=== PATIENT | female | born 1960 | race Two or more races ===

== ENCOUNTER 2020-02-10 10:33 | Emergency (ER) | payer OTHER ==
[~2020-02-10] VITALS: Ht 167.6 cm; Wt 90.7 kg
[2020-02-10] MEDS ORDERED: KETO10TA2 PO (12:42)
[2020-02-10] MEDS ORDERED: NORFLEX100MG PO (12:42)
== END 2020-02-10 12:50 | disposition home or self-care (01) ==
LOC: ER 10:33
DX: M54.5 Low back pain (principal)